=== PATIENT | male | born 1970 | race Caucasian/White ===

== ENCOUNTER → 2022-11-20 | Outpatient (REF) | payer OTHER ==
[2022-11-20 17:40] LABS: ALBUMIN 4.1 G/DL (3.2-5.2); ALKALINE PHOSPHATASE 69 U/L (46-116); ALT/SGPT 26 U/L (7.0-40); AST/SGOT 17 U/L (<34); BILIRUBIN,TOTAL 0.4 MG/DL (0.3-1.2); BLOOD UREA NITROGEN 8 MG/DL (9-23); CALCIUM LEVEL 9.5 MG/DL (8.5-10.1); CARBON DIOXIDE LEVEL 25 MMOL/L (20-31); CHLORIDE LEVEL 105 MMOL/L (98-107); CHOLESTEROL LEVEL 341 MG/DL (<200); CHOLESTEROL RISK RATIO 7.71 (<5); CREATININE FOR GFR 1.05 MG/DL (0.70-1.30); GLOMERULAR FILTRATION RATE > 60.0 (>56); GLUCOSE, FASTING 142 MG/DL (60-100); HDL CHOLESTEROL 44.2 MG/DL (>40); LDL CHOLESTEROL 275.6 MG/DL (<100); NON-HDL-C 296.8 MG/DL; POTASSIUM SERUM 4.3 MMOL/L (3.5-5.1); SODIUM LEVEL 139 MMOL/L (136-145); TOTAL PROTEIN 7.4 G/DL (5.7-8.2); TRIGLYCERIDES LEVEL 106 MG/DL (<150)
[2022-11-20 17:41] LABS: THYROID STIMULATING HORMONE 1.306 uIU/ML (0.55-4.78)
[2022-11-20 18:14] LABS: HEMOGLOBIN A1c 5.4 % (4.0-6.0)
== END ==
LOC: M LAB REF 16:12
PROVIDERS: ATTEND Nurse Practitioner Family
DX: Z11.9 Encounter for screening for infectious and parasitic diseases, unspecified (principal); F10.20 Alcohol dependence, uncomplicated; R81 Glycosuria; Z68.24 Body mass index [BMI] 24.0-24.9, adult; Z12.5 Encounter for screening for malignant neoplasm of prostate
CPT/HCPCS: 80053; 80061; 83036; 84443; 86592; 86780; G0103

== ENCOUNTER → 2023-02-05 | Outpatient (REF) | LOC: M EMP 11:30 | PROVIDERS: ATTEND Nurse Practitioner Adult Health | DX: Z02.89 Encounter for other administrative examinations (principal) ==

== ENCOUNTER → 2023-02-22 | Outpatient (CLI) | payer OTHER | LOC: M RAD 13:16 | PROVIDERS: ATTEND Nurse Practitioner Family | DX: M25.511 Pain in right shoulder (principal) ==

== ENCOUNTER → 2023-03-30 | Outpatient (REF) | LOC: M PLAIMG 11:04 | PROVIDERS: ATTEND Internal Medicine | DX: M47.816 Spondylosis without myelopathy or radiculopathy, lumbar region (principal) ==

== ENCOUNTER → 2023-05-24 | Outpatient (REF) | LOC: M EMP 12:05 | PROVIDERS: ATTEND Family Medicine | DX: Z20.822 Contact with and (suspected) exposure to COVID-19 (principal) ==

== ENCOUNTER → 2023-05-24 | Outpatient (REF) | LOC: M EMP 11:55 | PROVIDERS: ATTEND Family Medicine | DX: Z20.828 Contact with and (suspected) exposure to other viral communicable diseases (principal) ==

== ENCOUNTER 2023-09-01 08:37 | Emergency (ER) | payer OTHER ==
[~2023-09-01] VITALS: Ht 170.2 cm; Wt 77.2 kg
[2023-09-01] MEDS ORDERED: HYDR1TAB33 PO (08:48)
[2023-09-01 11:45] LABS: BASO % 0.2 % (0.0-1.0); EOS % 0.7 % (0.0-3.0); HEMATOCRIT 44.4 % (42.0-52.0); HEMOGLOBIN 15.7 g/dl (13.5-17.5); LYMPH % 23.7 % (24.0-44.0); MEAN CORPUSCULAR HEMOGLOBIN 31.7 pg (27.0-33.0); MEAN CORPUSCULAR HGB CONC 35.4 g/dl (32.0-36.5); MEAN CORPUSCULAR VOLUME 89.7 fl (80.0-96.0); MONO # 0.4 10^3/uL (0.0-0.8); MONO % 9.3 % (2.0-8.0); NEUTROPHILS # 2.7 10^3/uL (1.5-8.5); NEUTROPHILS % 65.6 % (36.0-66.0); PLATELET COUNT, AUTOMATED 207 10^3/uL (150-450); RED BLOOD COUNT 4.95 10^6/uL (4.30-6.10); WHITE BLOOD COUNT 4.2 10^3/uL (4.0-10.0)
[2023-09-01] MEDS: hydrOXYzine 50 MG TAB PO ONE (11:58)
[2023-09-01 12:02] VITALS: BP 150/91; TEMP 96.9; O2SAT 98
[2023-09-01 12:13] LABS: LIPASE 47 U/L (12-53)
[2023-09-01 12:15] LABS: ALBUMIN 4.2 G/DL (3.2-5.2); ALKALINE PHOSPHATASE 100 U/L (46-116); ALT/SGPT 31 U/L (7.0-40); AST/SGOT 29 U/L (<34); BILIRUBIN,DIRECT 0.1 MG/DL (<0.4); BILIRUBIN,TOTAL 0.8 MG/DL (0.3-1.2); BLOOD UREA NITROGEN 11 MG/DL (9-23); CALCIUM LEVEL 9.7 MG/DL (8.5-10.1); CARBON DIOXIDE LEVEL 29 MMOL/L (20-31); CHLORIDE LEVEL 101 MMOL/L (98-107); CREATININE FOR GFR 0.88 MG/DL (0.70-1.30); GLOMERULAR FILTRATION RATE > 60.0 (>56); GLUCOSE, FASTING 120 MG/DL (60-100); SODIUM LEVEL 137 MMOL/L (136-145); TOTAL PROTEIN 7.7 G/DL (5.7-8.2)
== END 2023-09-01 12:30 | disposition home or self-care (01) ==
LOC: M ED 08:37
DX: R10.9 Unspecified abdominal pain (principal); F41.9 Anxiety disorder, unspecified; F32.A Depression, unspecified; F10.10 Alcohol abuse, uncomplicated; Z79.899 Other long term (current) drug therapy

== ENCOUNTER → 2024-01-19 | Outpatient (REF) ==
[~2024-01-19] MED LIST: HYDR1TAB33 PO
== END ==
LOC: M PLAIMG 14:14
PROVIDERS: ATTEND Internal Medicine
DX: M17.12 Unilateral primary osteoarthritis, left knee (principal); M19.012 Primary osteoarthritis, left shoulder

== ENCOUNTER 2024-03-18 13:47 | Emergency (ER) | payer MEDICAID, OTHER, SELFPAY ==
[~2024-03-18] VITALS: Ht 170.2 cm; Wt 75.9 kg
[2024-03-18] MEDS ORDERED: CELE1CAP99 (13:53)
[2024-03-18] MEDS ORDERED: TRAZ1TAB14 (13:53)
[2024-03-18] MEDS ORDERED: GUAIDM5UD PO (16:08)
[2024-03-18 16:20] VITALS: BP 139/89; TEMP 98.4; O2SAT 98
== END 2024-03-18 16:22 | disposition home or self-care (01) ==
LOC: M ED 13:47
DX: J06.9 Acute upper respiratory infection, unspecified (principal); F10.10 Alcohol abuse, uncomplicated; Z79.899 Other long term (current) drug therapy

== ENCOUNTER → 2024-11-24 | Outpatient (REF) | payer OTHER ==
[~2024-11-24] MED LIST changes: +CELE1CAP99; +GUAIDM5UD PO; +TRAZ1TAB14
[2024-11-24 17:45] LABS: ALT/SGPT 29.0 U/L (7.0-40); AST/SGOT 35.0 U/L (<34); CHOLESTEROL LEVEL 272.0 MG/DL (<200); CHOLESTEROL RISK RATIO 5.0 (<5); LDL CHOLESTEROL 174.8 MG/DL (<100); NON-HDL-C 217.6 MG/DL; TRIGLYCERIDES LEVEL 214.0 MG/DL (<150)
== END ==
LOC: M LAB REF 16:26
PROVIDERS: ATTEND Nurse Practitioner Family
DX: E78.00 Pure hypercholesterolemia, unspecified (principal)

== ENCOUNTER → 2024-12-20 | Outpatient (REF) | LOC: M PLAIMG 11:58 | PROVIDERS: ATTEND Internal Medicine | DX: M54.50 Low back pain, unspecified (principal) ==